=== PATIENT | male | born 1980 | race African-American/Black ===

== ENCOUNTER 2017-09-28 06:57 | Emergency (ER) | payer SELFPAY ==
[~2017-09-28] VITALS: Ht 185.4 cm; Wt 114.8 kg
[2017-09-28] MEDS ORDERED: MOBIC7.5 MG PO (07:47)
[2017-09-28 08:04] LABS: SOURCE URINE
[2017-09-28 08:08] LABS: APPEARANCE CLEAR ((CLEAR)); BILIRUBIN NEGATIVE; BLOOD NEGATIVE; COLOR YELLOW ((YELLOW)); GLUCOSE (STRIP) NEGATIVE; KETONES NEGATIVE; LEUKOCYTES NEGATIVE; NITRITE NEGATIVE; PROTEIN (STRIP) NEGATIVE; SPECIFIC GRAVITY 1.021 (1.000-1.030); UCUL ADDED? NO; UROBILINOGEN 0.2 MG/DL (0.2-1.0)
[2017-09-28 08:21] VITALS: BP 155/98
[2017-09-28 17:31] LABS: CHLAMYDIA TRACHOMATIS NEGATIVE; NEISSERIA GONORRHOEAE NEGATIVE
== END 2017-09-28 08:22 | disposition home or self-care (01) ==
LOC: EME 06:57
PROVIDERS: Nurse Practitioner Family
DX: M79.672 Pain in left foot (principal); M79.89 Other specified soft tissue disorders; R30.0 Dysuria; Z20.2 Contact with and (suspected) exposure to infections with a predominantly sexual mode of transmission; Z11.3 Encounter for screening for infections with a predominantly sexual mode of transmission
CPT/HCPCS: 73630; 81003; 87491; 87591; 99281; 99284; J0696